=== PATIENT | male | born 1955 | race Caucasian/White ===

== ENCOUNTER → 2016-09-20 | Outpatient (CLI) | payer OTHER ==
[~2016-09-20] MED LIST: ADVIL200 MG PO; ALEVE 220MG220 MG PO; AMBIEN 5MG TABLE5 MG PO; CLEOCIN HC150 MG/CAP PO; DIFLUCAN 100MG100 MG PO; FLAGYL 250250 MG/TAB; FLEXERIL 1010 MG/TAB PO; IBUPROFEN800 MG PO; LEVAQUIN 750MG750 M1 PO; LEXAPRO 5MG5 MG PO; MULTIPLE VITAMI1 CAP; NO HOME MEDICATIONS; NORCO 325 MG-101 TAB PO; NORCO 325 MG-7.1 TAB PO; NORVASC 5MG5 MG/TAB PO; OMNICEF 300MG300 MG PO; PERCOCET 325 MG1 TA2 PO; PREDNISONE 5MG5 MG PO; PREDNISONE20 MG PO; PROTONIX20 MG PO; TYLENOL 325MG325 MG PO; VICODIN 5/5001 UDTAB PO; ZOVIRAX 200MG200 MG PO
== END ==
LOC: COL.RAD 09:13
DX: C90.01 Multiple myeloma in remission (principal); Z98.1 Arthrodesis status

== ENCOUNTER → 2016-10-21 | Outpatient (CLI) | payer OTHER ==
[~2016-10-21] VITALS: Ht 177.8 cm; Wt 81.8 kg
[2016-10-21 07:33] VITALS: BP 144/84; PULSE 57
[2016-10-21 08:30] VITALS: BP 158/89; PULSE 60
== END ==
LOC: COL.RAD 07:00
DX: M54.9 Dorsalgia, unspecified (principal); C90.01 Multiple myeloma in remission
CPT/HCPCS: J3301

== ENCOUNTER 2017-02-26 17:56 | Emergency (ER) | payer OTHER ==
[~2017-02-26] VITALS: Ht 177.8 cm; Wt 84.1 kg
[~2017-02-26 17:56] MED LIST changes: -AMBIEN 5MG TABLE5 MG PO; -LEXAPRO 5MG5 MG PO; -NORVASC 5MG5 MG/TAB PO; -ZOVIRAX 200MG200 MG PO
[2017-02-26 18:02] VITALS: TEMP 98.8
[2017-02-26 18:42] LABS: BASO % 0.1 % (0.0-2.0); EOS # 0.1 (0.0-0.7); EOS % 0.7 % (0-4.0); GRAN # 3.4 (1.4-6.5); GRAN % 48.8 % (42.2-75.2); LYMPH # 2.5 (1.2-3.4); LYMPH % 35.9 % (20.0-51.0); MEAN CELL VOLUME 94 fl (80.0-100.0); MEAN CORPUSCULAR HGB CONC 33 g/dl (33.0-37.0); MEAN PLATELET VOLUME 9.5 fl (7.4-10.4); MONO % 14.1 % (1.7-9.3); PLATELET COUNT 131 K/mm3 (130-400); RED BLOOD COUNT 3.18 M/mm3 (4.20-5.60); REDCELL DISTRIBUTION WIDTH-CV 15.7 % (11.5-14.5); WHITE BLOOD COUNT 6.9 K/mm3 (4.8-10.8)
[2017-02-26] MEDS ORDERED: NORVASC 5MG5 MG/TAB PO ×2 (18:42→21:59)
[2017-02-26 18:46] LABS: HEMOGLOBIN 9.8 g/dl (13.5-18.0); MEAN CORPUSCULAR HEMOGLOBIN 31 pg (27.0-31.0)
[2017-02-26 18:48] LABS: ADJUSTED CALCIUM 8.8 mg/dL (8.4-10.2); ALANINE AMINOTRANSFERASE 36 U/L (21-72); ALBUMIN 3.6 gm/dL (3.5-5.0); ALKALINE PHOSPHATASE 45 U/L (50-136); ANION GAP 7 mmol/L (7-16); BILIRUBIN,TOTAL 0.7 mg/dL (0.0-1.0); BLOOD UREA NITROGEN 25 mg/dL (9-20); CALCIUM 8.5 mg/dL (8.4-10.2); CARBON DIOXIDE 24 mmol/L (22-30); CHLORIDE 106 mmol/L (98-107); CREATININE, serum 1.03 mg/dL (0.66-1.25); GLUCOSE 104 mg/dL (74-106); SODIUM 136 mmol/L (137-145); TOTAL PROTEIN 6.1 gm/dL (6.4-8.2)
[2017-02-26] MEDS ORDERED: AMBIEN 5MG TABLE5 MG PO (18:54)
[2017-02-26] MEDS ORDERED: LEXAPRO 5MG5 MG PO (18:54)
[2017-02-26] MEDS ORDERED: PERCOCET 325 MG1 TA2 PO (18:55)
[2017-02-26] MEDS ORDERED: ZOVIRAX 200MG200 MG PO (18:56)
[2017-02-26 19:03] LABS: TROPONIN-I < 0.012 ng/mL (0.000-0.034)
[2017-02-26 19:52] LABS: PH 5 (5-8); SQUAMOUS EPITHELIAL None Seen /hpf; URINE APPEARANCE Clear; URINE BACTERIA None Seen /hpf; URINE BILIRUBIN Negative (NEGATIVE); URINE BLOOD 1+ (NEGATIVE); URINE GLUCOSE Negative (NEGATIVE); URINE KETONE Negative (NEGATIVE); URINE RBC 0-2 /hpf; URINE UROBILINOGEN Negative (NEGATIVE); URINE WBC 0-2 /hpf
[2017-02-26 19:53] LABS: URINE COLOR Yellow
[2017-02-26 22:18] VITALS: BP 163/88; PULSE 58
== END 2017-02-26 22:31 | disposition home or self-care (01) ==
LOC: COL.ER 17:56
PROVIDERS: Emergency Medicine
DX: I10 Essential (primary) hypertension (principal); R53.81 Other malaise; C92.Z0 Other myeloid leukemia not having achieved remission; M19.90 Unspecified osteoarthritis, unspecified site; F17.210 Nicotine dependence, cigarettes, uncomplicated; Z85.79 Personal history of other malignant neoplasms of lymphoid, hematopoietic and related tissues; Z94.84 Stem cells transplant status; Z98.890 Other specified postprocedural states
CPT/HCPCS: J1885; J1940; J2405; J7030; Q9967

== ENCOUNTER → 2017-03-04 | Outpatient (CLI) | payer OTHER ==
[~2017-03-04] MED LIST changes: +AMBIEN 5MG TABLE5 MG PO; +LEXAPRO 5MG5 MG PO; +NORVASC 5MG5 MG/TAB PO; +ZOVIRAX 200MG200 MG PO
== END ==
LOC: COL.VAS 13:43
DX: I08.1 Rheumatic disorders of both mitral and tricuspid valves (principal); I77.810 Thoracic aortic ectasia; I28.8 Other diseases of pulmonary vessels; I37.1 Nonrheumatic pulmonary valve insufficiency; I10 Essential (primary) hypertension

== ENCOUNTER 2018-06-12 09:29 | Emergency (ER) | payer MEDICARE, OTHER ==
[~2018-06-12] VITALS: Ht 177.8 cm; Wt 79.5 kg
[~2018-06-12 09:29] MED LIST changes: +PROAIR HFA0.09 MG/AC IH
[2018-06-12 09:32] VITALS: TEMP 98
[2018-06-12] MEDS ORDERED: OXYCONTIN 10MG10 MG PO (10:10)
[2018-06-12] MEDS ORDERED: PERCOCET 325 MG1 TA2 PO (10:11)
[2018-06-12] MEDS ORDERED: POMA4CAP PO (10:11)
[2018-06-12 10:15] LABS: HEMOGLOBIN 10.8 g/dl (13.5-18.0); MEAN CELL VOLUME 86 fl (80.0-100.0); MEAN CORPUSCULAR HEMOGLOBIN 28 pg (27.0-31.0); MEAN CORPUSCULAR HGB CONC 33 g/dl (33.0-37.0); MEAN PLATELET VOLUME 9.5 fl (7.4-10.4); PLATELET COUNT 148 K/mm3 (130-400); RED BLOOD COUNT 3.87 M/mm3 (4.20-5.60); REDCELL DISTRIBUTION WIDTH-CV 19.5 % (11.5-14.5)
[2018-06-12 10:19] LABS: HEMATOCRIT 33.1 % (42.0-52.0)
[2018-06-12 10:21] LABS: CALCIUM 9.1 mg/dL (8.4-10.2); CREATININE, serum 0.63 mg/dL (0.66-1.25); POTASSIUM 4.1 mmol/L (3.4-5.0)
[2018-06-12 11:12] LABS: ANISOCYTOSIS 1+; BAND 16 % (0-10); LYMPHOCYTE 44 % (20.0-51.0); METAMYELOCYTE 8 % (0-0); NEUTROPHILS 20 % (42.0-75.2); NUCLEATED RED BLOOD CELL 1 (0-6); PLATELET ESTIMATE DECREASED (NORMAL)
[2018-06-12 11:13] LABS: OVALOCYTES 1+; POIKILOCYTOSIS 1+
[2018-06-12] MEDS ORDERED: LIDODERM 5% PATC1 EA TP (13:22)
[2018-06-12 13:39] VITALS: BP 175/83; PULSE 48
[2018-06-13] MEDS ORDERED: NORVASC 5MG5 MG/TAB PO (14:36)
== END 2018-06-12 13:40 | disposition home or self-care (01) ==
LOC: COL.ER 09:29
PROVIDERS: Emergency Medicine
DX: M54.5 Low back pain (principal); I10 Essential (primary) hypertension; C90.00 Multiple myeloma not having achieved remission; F17.210 Nicotine dependence, cigarettes, uncomplicated; Z79.891 Long term (current) use of opiate analgesic
CPT/HCPCS: A9585; J1885; J2270; J7030

== ENCOUNTER 2018-06-15 13:07 | Inpatient (IN) | payer MEDICARE, OTHER ==
[~2018-06-15] VITALS: Ht 175.3 cm; Wt 83.0 kg
[~2018-06-15 13:07] MED LIST changes: +LIDODERM 5% PATC1 EA TP; +OXYCONTIN 10MG10 MG PO; +POMA4CAP PO
[2018-06-15] MEDS ORDERED: OXYCODONE H5 MG/5 ML PO (13:31)
[2018-06-15] MEDS ORDERED: FENTANYL 25 MCG TD (13:31)
[2018-06-15] MEDS ORDERED: LEVAQUIN 5500 MG/TA1 PO (13:31)
[2018-06-15 15:14] VITALS: BP 112/51; PULSE 58; TEMP 98.7
[2018-06-15 16:01] LABS: INR 1.3 (0.8-3.0); PROTHROMBIN TIME 14.6 SECONDS (9.7-12.8)
[2018-06-15 16:09] LABS: MAGNESIUM 1.9 mg/dL (1.6-2.3)
[2018-06-15 16:45] LABS: C-REACTIVE PROTEIN 31.8 mg/dL (0.0-0.9)
[2018-06-15] MEDS ORDERED: ROXANOL 20MG20 MG/ML PO (17:08)
[2018-06-15 19:23] VITALS: BP 126/60; PULSE 93
[2018-06-16 00:09] VITALS: BP 129/64; PULSE 80; TEMP 100.1
[2018-06-16 04:04] VITALS: BP 118/67; PULSE 69; TEMP 99.8
[2018-06-16 07:26] VITALS: BP 125/55; PULSE 67; TEMP 98.7
[2018-06-16 08:06] LABS: CALCIUM 7.8 mg/dL (8.4-10.2); CREATININE, serum 0.89 mg/dL (0.66-1.25); MAGNESIUM 1.8 mg/dL (1.6-2.3); POTASSIUM 4.2 mmol/L (3.4-5.0)
[2018-06-16 08:12] LABS: MEAN CELL VOLUME 86 fl (80.0-100.0); MEAN CORPUSCULAR HGB CONC 32 g/dl (33.0-37.0); MEAN PLATELET VOLUME 9.2 fl (7.4-10.4); PLATELET COUNT 106 K/mm3 (130-400); RED BLOOD COUNT 2.93 M/mm3 (4.20-5.60); REDCELL DISTRIBUTION WIDTH-CV 19.6 % (11.5-14.5)
[2018-06-16 08:22] LABS: HEMATOCRIT 25.3 % (42.0-52.0); HEMOGLOBIN 8.2 g/dl (13.5-18.0); MEAN CORPUSCULAR HEMOGLOBIN 28 pg (27.0-31.0)
[2018-06-16 08:28] LABS: BAND 28 % (0-10); EOSINOPHIL 2 % (0-4); LYMPHOCYTE 38 % (20.0-51.0); NEUTROPHILS 32 % (42.0-75.2)
[2018-06-16 08:29] LABS: PLATELET ESTIMATE DECREASED (NORMAL)
[2018-06-16 08:30] LABS: OVALOCYTES 2+; SCHISTOCYTES 1+; TEAR DROP CELLS 1+
[2018-06-16 13:39] VITALS: BP 117/63; PULSE 68; TEMP 99
[2018-06-16 15:27] VITALS: BP 133/60; PULSE 71; TEMP 98.8
[2018-06-16 20:00] VITALS: BP 136/59; PULSE 76; TEMP 98.1
[2018-06-17 00:43] VITALS: BP 131/63; PULSE 80; TEMP 98.3
[2018-06-17 04:55] VITALS: BP 124/72; PULSE 63
[2018-06-17 08:05] VITALS: BP 135/71; PULSE 55; TEMP 98.2
[2018-06-17 09:06] LABS: MEAN CELL VOLUME 88 fl (80.0-100.0); MEAN CORPUSCULAR HGB CONC 32 g/dl (33.0-37.0); MEAN PLATELET VOLUME 10.6 fl (7.4-10.4); PLATELET COUNT 132 K/mm3 (130-400); RED BLOOD COUNT 3.16 M/mm3 (4.20-5.60); REDCELL DISTRIBUTION WIDTH-CV 19.9 % (11.5-14.5)
[2018-06-17 09:07] LABS: HEMATOCRIT 27.7 % (42.0-52.0); HEMOGLOBIN 8.9 g/dl (13.5-18.0); MEAN CORPUSCULAR HEMOGLOBIN 28 pg (27.0-31.0)
[2018-06-17 09:20] LABS: CREATININE, serum 0.77 mg/dL (0.66-1.25); POTASSIUM 4.3 mmol/L (3.4-5.0)
[2018-06-17 09:21] LABS: ANISOCYTOSIS 1+; BAND 42 % (0-10); HYPOCHROMIA 1+; LYMPHOCYTE 20 % (20.0-51.0); NEUTROPHILS 32 % (42.0-75.2); PLATELET ESTIMATE DECREASED (NORMAL); POIKILOCYTOSIS 1+
[2018-06-17 09:23] LABS: OVALOCYTES 1+
[2018-06-17 11:07] VITALS: BP 134/63; PULSE 58; TEMP 98.6
[2018-06-17] MEDS ORDERED: LEVAQUIN 750MG750 M1 PO (13:45)
[2018-06-19 13:15] LABS: QUANTIFERON TB GOLD Indeterminate (Negative)
[2018-06-23 15:55] LABS: COCCIDIOIDES AB IGG Negative (Negative); COCCIDIOIDES AB IGM Negative (Negative); COCCIDIOIDES CF Negative (Negative)
== END 2018-06-17 15:58 | disposition home or self-care (01) | DRG 194 ==
LOC: MEDICAL 13:07
PROVIDERS: Internal Medicine; Physician Assistant
PROC: 3E0R33Z Introduction of Anti-inflammatory into Spinal Canal, Percutaneous Approach (ICD-10-PCS; principal; 2018-06-16)
PROC: 3E0R3BZ Introduction of Anesthetic Agent into Spinal Canal, Percutaneous Approach (ICD-10-PCS; 2018-06-16)
DX: J12.1 Respiratory syncytial virus pneumonia (principal); C90.02 Multiple myeloma in relapse; Z94.84 Stem cells transplant status; D70.1 Agranulocytosis secondary to cancer chemotherapy; R50.81 Fever presenting with conditions classified elsewhere; F17.210 Nicotine dependence, cigarettes, uncomplicated; I10 Essential (primary) hypertension; D64.9 Anemia, unspecified
CPT/HCPCS: 99222-AI; 99232-AI; 99239; A4216; J0692; J1447; J1650; J2270; J3301; J7030

== ENCOUNTER 2018-09-08 08:30 | Outpatient (RCR) | payer MEDICARE, OTHER ==
[~2018-09-08 08:30] MED LIST changes: +FENTANYL 25 MCG TD; +LEVAQUIN 5500 MG/TA1 PO; +OXYCODONE H5 MG/5 ML PO; +ROXANOL 20MG20 MG/ML PO
== END 2018-10-11 | disposition home or self-care (01) ==
LOC: WSPT
DX: C90.02 Multiple myeloma in relapse (principal); M48.061 Spinal stenosis, lumbar region without neurogenic claudication; M54.32 Sciatica, left side; M54.31 Sciatica, right side; R29.898 Other symptoms and signs involving the musculoskeletal system; Z92.3 Personal history of irradiation; Z92.21 Personal history of antineoplastic chemotherapy; Z94.84 Stem cells transplant status
CPT/HCPCS: G8978-GP; G8979-GP

== ENCOUNTER → 2018-11-13 | Outpatient (CLI) | payer MEDICARE, OTHER | LOC: COL.RAD 07:56 | DX: K63.89 Other specified diseases of intestine (principal); R39.89 Other symptoms and signs involving the genitourinary system; R31.9 Hematuria, unspecified | CPT/HCPCS: Q9967 ==

== ENCOUNTER → 2019-01-14 | Emergency (ER) | payer MEDICARE, OTHER ==
[~2019-01-14] MED LIST changes: +ASPIRIN E.C. 8181 MG PO; +CIPRO 500MG TA500 MG PO; +CYMBALTA 30MG30 MG PO; +DOXYCYCLINE 10100 MG PO; +FLOMAX 0.40.4 MG/CAP PO; +GLUCOPHAGE500 MG/TAB PO; +IMODIUM 2MG CAPS2 MG PO; +NEURONTIN100 MG/CAP PO; +NORVASC 10MG10 MG PO; +OXY IR5 MG PO; +ZOVIRAX400 MG PO
== END ==
LOC: COL.ER 06:20
DX: Z72.9 Problem related to lifestyle, unspecified (principal)

== ENCOUNTER 2019-03-23 09:30 | Outpatient (RCR) | payer MEDICARE, OTHER | END 2019-03-27 09:22 | disposition home or self-care (01) | LOC: WSPT 09:30 | DX: M48.062 Spinal stenosis, lumbar region with neurogenic claudication (principal); G62.9 Polyneuropathy, unspecified ==

== ENCOUNTER 2019-05-29 10:30 | Outpatient (RCR) | payer MEDICARE, OTHER | END 2019-08-02 11:07 | disposition home or self-care (01) | LOC: WSPT 10:30 | DX: C90.02 Multiple myeloma in relapse (principal); M48.062 Spinal stenosis, lumbar region with neurogenic claudication; R27.0 Ataxia, unspecified; M46.92 Unspecified inflammatory spondylopathy, cervical region; Z43.3 Encounter for attention to colostomy; Z87.891 Personal history of nicotine dependence ==

== ENCOUNTER 2019-08-08 08:40 | Outpatient (RCR) | payer MEDICARE, OTHER ==
[~2019-08-08] VITALS: Ht 175.3 cm; Wt 80.0 kg
[2019-08-08 09:52] VITALS: BP 121/80; PULSE 73; TEMP 98.4
--- NOTE | 2019-08-08 10:00 | NUR ---
Pt placed on heart monitor in room to for infusion due to potential cardiac side effects. Pt in SR, HR 75.
[2019-08-08] MEDS ORDERED: WELLBUTRIN XL150 MG PO (10:09)
[2019-08-08] MEDS ORDERED: VANCOCIN H125 MG/CAP PO (10:09)
[2019-08-08] MEDS ORDERED: [UNRECOGNIZED DRUG - OTHER] IV (10:11)
--- NOTE | 2019-08-08 10:27 | NUR ---
Pt tolerating Zinplava well. Pt in SR, HR 68 per monitor in room.
[2019-08-08 10:28] VITALS: BP 138/75; PULSE 82
[2019-08-08 11:17] VITALS: BP 143/71; PULSE 60; TEMP 98.7
--- NOTE | 2019-08-08 11:18 | NUR ---
Pt in SR 61 per heart monitor in room. Pt alfonso aguilar.
--- NOTE | 2019-08-08 11:35 | NUR ---
Pt alfonso infusion well. Pt discharged per w/c by nurse to truck.
== END 2019-08-08 12:44 | disposition home or self-care (01) ==
LOC: EUO 08:40
DX: C90.02 Multiple myeloma in relapse (principal); A49.8 Other bacterial infections of unspecified site; A04.71 Enterocolitis due to Clostridium difficile, recurrent; D89.9 Disorder involving the immune mechanism, unspecified; F19.90 Other psychoactive substance use, unspecified, uncomplicated; D69.9 Hemorrhagic condition, unspecified
CPT/HCPCS: J0565; J7050

== ENCOUNTER 2019-10-16 14:48 | Outpatient (RCR) | payer MEDICARE, OTHER ==
[~2019-10-16] VITALS: Ht 175.3 cm; Wt 79.0 kg
[~2019-10-16 14:48] MED LIST changes: +VANCOCIN H125 MG/CAP PO; +WELLBUTRIN XL150 MG PO; +[UNRECOGNIZED DRUG - OTHER] IV
[2019-10-19] VITALS (10 sets, daily range): BP systolic 148–178; BP diastolic 59–91; PULSE 43–68; TEMP 97.7–98.9
== END 2019-10-19 18:37 | disposition home or self-care (01) ==
LOC: EUO 14:48
DX: C90.00 Multiple myeloma not having achieved remission (principal); D64.9 Anemia, unspecified
CPT/HCPCS: J7050; P9016

== ENCOUNTER 2019-11-01 10:15 | Outpatient (RCR) | payer MEDICARE, OTHER ==
[2019-11-08] MEDS ORDERED: TYLENOL 325MG325 MG PO (03:30)
[2019-11-08] MEDS ORDERED: DECADRON 4MG TAB4 MG PO (03:31)
[2019-11-08] MEDS ORDERED: CYMBALTA 30MG30 MG PO (03:32)
[2019-11-08] MEDS ORDERED: FLOMAX 0.40.4 MG/CAP PO (03:33)
[2019-11-08] MEDS ORDERED: GLUCOPHAGE500 MG/TAB PO (03:33)
[2019-11-08] MEDS ORDERED: ROXICODONE15 MG PO (03:34)
[2019-11-08] MEDS ORDERED: OMNICEF 300MG300 MG PO (06:28)
[2020-01-14] MEDS ORDERED: NEURONTIN300 MG/CAP PO (09:20)
[2020-01-14] MEDS ORDERED: FENTANYL 50MCG TD (09:22)
== END 2020-01-09 | disposition home or self-care (01) ==
LOC: WSPT
DX: C90.02 Multiple myeloma in relapse (principal); M48.062 Spinal stenosis, lumbar region with neurogenic claudication; M46.92 Unspecified inflammatory spondylopathy, cervical region; R27.0 Ataxia, unspecified

== ENCOUNTER 2019-11-08 03:08 | Emergency (ER) | payer MEDICARE, OTHER ==
[~2019-11-08] VITALS: Ht 172.7 cm; Wt 78.6 kg
[2019-11-08] MEDS ORDERED: TYLENOL 325MG325 MG PO (03:30)
[2019-11-08] MEDS ORDERED: DECADRON 4MG TAB4 MG PO (03:31)
[2019-11-08] MEDS ORDERED: CYMBALTA 30MG30 MG PO (03:32)
[2019-11-08] MEDS ORDERED: GLUCOPHAGE500 MG/TAB PO (03:33)
[2019-11-08] MEDS ORDERED: FLOMAX 0.40.4 MG/CAP PO (03:33)
[2019-11-08] MEDS ORDERED: ROXICODONE15 MG PO (03:34)
[2019-11-08 03:49] LABS: BASO # 0.1 (0.0-0.2); BASO % 1.4 % (0.0-2.0); EOS % 0.2 % (0-4.0); GRAN # 4.2 (1.4-6.5); GRAN % 82.7 % (42.2-75.2); LYMPH # 0.4 (1.2-3.4); LYMPH % 8.5 % (20.0-51.0); MEAN CELL VOLUME 78 fl (80.0-100.0); MEAN CORPUSCULAR HEMOGLOBIN 24 pg (27.0-31.0); MEAN CORPUSCULAR HGB CONC 31 g/dl (33.0-37.0); MEAN PLATELET VOLUME 9.7 fl (7.4-10.4); MONO # 0.3 (0.1-0.6); MONO % 6.2 % (1.7-9.3); PLATELET COUNT 282 K/mm3 (130-400); RED BLOOD COUNT 4.65 M/mm3 (4.20-5.60); REDCELL DISTRIBUTION WIDTH-CV 24.3 % (11.5-14.5)
[2019-11-08 03:58] LABS: ALBUMIN 4.3 gm/dL (3.5-5.0); BILIRUBIN,TOTAL 0.5 mg/dL (0.0-1.0); CALCIUM 9.1 mg/dL (8.4-10.2); HEMATOCRIT 36.1 % (42.0-52.0); POTASSIUM 4.6 mmol/L (3.4-5.0); TOTAL PROTEIN 7.6 gm/dL (6.4-8.2)
[2019-11-08 04:17] LABS: COLLECTION METHOD CLEAN CATCH
[2019-11-08 04:28] LABS: MUCOUS Present /lpf; PH 5 (5-8); SQUAMOUS EPITHELIAL None Seen /hpf; URINE APPEARANCE Cloudy; URINE BACTERIA None Seen /hpf; URINE BILIRUBIN Negative (NEGATIVE); URINE BLOOD 2+ (NEGATIVE); URINE COLOR Yellow; URINE GLUCOSE Negative (NEGATIVE); URINE KETONE Negative (NEGATIVE); URINE LEUKOCYTE ESTERASE 3+ (NEGATIVE); URINE NITRATE Negative (NEGATIVE); URINE PROTEIN(semi-quant) 2+ (NEGATIVE); URINE UROBILINOGEN Negative (NEGATIVE)
[2019-11-08] MEDS ORDERED: OMNICEF 300MG300 MG PO (06:28)
[2019-11-08 07:50] VITALS: BP 123/72; PULSE 85; TEMP 98.7
== END 2019-11-08 07:50 | disposition home or self-care (01) ==
LOC: COL.ER 03:08
PROVIDERS: Emergency Medicine
DX: N39.0 Urinary tract infection, site not specified (principal); C90.00 Multiple myeloma not having achieved remission; F17.210 Nicotine dependence, cigarettes, uncomplicated; Z79.84 Long term (current) use of oral hypoglycemic drugs
CPT/HCPCS: J0696; J2405; J7030

== ENCOUNTER → 2020-01-16 | Outpatient (CLI) | payer MEDICARE, OTHER ==
[~2020-01-16] MED LIST changes: +DECADRON 4MG TAB4 MG PO; +FENTANYL 50MCG TD; +NEURONTIN300 MG/CAP PO; +ROXICODONE15 MG PO
[2020-01-16 09:12] VITALS: BP 143/68; PULSE 50
[2020-01-16 10:45] VITALS: BP 145/71; PULSE 52
--- NOTE | 2020-01-16 11:15 | NUR ---
pts legs are moving but his hips are numb.
--- NOTE | 2020-01-16 11:30 | NUR ---
pt legs remain somewhat unsteady. pt reports his hips are slightly improved. staff helped pt into his pov and his was uncertain about taking pt home. pt was adament about going home. he refused to stay any longer.
== END ==
LOC: COL.RAD 08:45
DX: M48.061 Spinal stenosis, lumbar region without neurogenic claudication (principal)
CPT/HCPCS: J3301

== ENCOUNTER 2020-01-23 13:00 | Outpatient (RCR) | payer MEDICARE, OTHER ==
[2020-01-23] VITALS (9 sets, daily range): BP systolic 144–168; BP diastolic 57–81; PULSE 50–55; TEMP 98–98.2
[2020-01-23] MEDS ORDERED: NEURONTIN100 MG/CAP PO (17:39)
[2020-01-23] MEDS ORDERED: REVLIMID15 MG (17:53)
[2020-01-23] MEDS ORDERED: VELCADE3.5 MG IV (17:54)
[2020-01-23] MEDS ORDERED: ZOMETA4 MG/5 ML IV (17:55)
[2020-01-23] MEDS ORDERED: ASPIRIN E.C. 8181 MG PO (17:55)
== END 2020-01-23 19:15 | disposition home or self-care (01) ==
LOC: EUO 13:00
DX: C90.02 Multiple myeloma in relapse (principal); D50.8 Other iron deficiency anemias
CPT/HCPCS: J7050; P9040

== ENCOUNTER 2020-03-07 19:24 | Emergency (ER) | payer MEDICARE, OTHER ==
[~2020-03-07] VITALS: Ht 175.3 cm; Wt 77.3 kg
[~2020-03-07 19:24] MED LIST changes: +REVLIMID15 MG; +VELCADE3.5 MG IV; +ZOMETA4 MG/5 ML IV
[2020-03-07 19:29] VITALS: TEMP 98.5
[2020-03-07 20:00] LABS: COLLECTION METHOD CLEAN CATCH
[2020-03-07 20:09] LABS: BUDDING YEAST Present /hpf; MUCOUS Present /lpf; PH 5 (5-8); SQUAMOUS EPITHELIAL 0-2 /hpf; URINE APPEARANCE Hazy; URINE BACTERIA Occasional /hpf; URINE BILIRUBIN Negative (NEGATIVE); URINE BLOOD 2+ (NEGATIVE); URINE COLOR Yellow; URINE GLUCOSE Negative (NEGATIVE); URINE KETONE Negative (NEGATIVE); URINE LEUKOCYTE ESTERASE 2+ (NEGATIVE); URINE NITRATE Negative (NEGATIVE); URINE PROTEIN(semi-quant) 1+ (NEGATIVE); URINE UROBILINOGEN Negative (NEGATIVE)
[2020-03-07 20:22] LABS: MEAN CELL VOLUME 89 fl (80.0-100.0); MEAN CORPUSCULAR HGB CONC 31 g/dl (33.0-37.0); MEAN PLATELET VOLUME 10.7 fl (7.4-10.4); PLATELET COUNT 132 K/mm3 (130-400); RED BLOOD COUNT 3.23 M/mm3 (4.20-5.60); REDCELL DISTRIBUTION WIDTH-CV 21.2 % (11.5-14.5)
[2020-03-07 20:23] LABS: HEMATOCRIT 28.7 % (42.0-52.0); HEMOGLOBIN 8.8 g/dl (13.5-18.0); MEAN CORPUSCULAR HEMOGLOBIN 27 pg (27.0-31.0)
[2020-03-07 20:34] LABS: ALBUMIN 3.7 gm/dL (3.5-5.0); BILIRUBIN,TOTAL 1.2 mg/dL (0.0-1.0); C-REACTIVE PROTEIN 6.8 mg/dL (0.0-0.9); CALCIUM 8.8 mg/dL (8.4-10.2); CREATININE, serum 1.04 (0.66-1.25); POTASSIUM 4.2 mmol/L (3.4-5.0); TOTAL PROTEIN 6.7 gm/dL (6.4-8.2)
[2020-03-07 21:09] LABS: BAND 3 % (0-10); EOSINOPHIL 4 % (0-4); LYMPHOCYTE 18 % (20.0-51.0); MYELOCYTE 1 % (0-0); NEUTROPHILS 58 % (42.0-75.2)
[2020-03-07 21:11] LABS: OVALOCYTES 3+; PLATELET ESTIMATE NORMAL (NORMAL)
[2020-03-07 21:12] LABS: ANISOCYTOSIS 2+; HYPOCHROMIA 3+; SCHISTOCYTES 1+; TOXIC GRANULATION PRESENT
[2020-03-07] MEDS ORDERED: CEFTIN500 MG PO (21:50)
[2020-03-07 22:12] VITALS: BP 121/69; PULSE 75
[2020-03-09] MEDS ORDERED: DIFLUCAN200 MG PO (17:45)
[2020-03-10 08:36] LABS: PATHOLOGY DIFF REVIEW OK
== END 2020-03-07 22:10 | disposition home or self-care (01) ==
LOC: COL.ER 19:24
PROVIDERS: Emergency Medicine
DX: N39.0 Urinary tract infection, site not specified (principal); I10 Essential (primary) hypertension; F17.210 Nicotine dependence, cigarettes, uncomplicated; Z90.89 Acquired absence of other organs
CPT/HCPCS: J0696; J2270; J2405; J7030; Q9967

== ENCOUNTER → 2020-07-31 | Outpatient (CLI) | payer MEDICARE, OTHER ==
--- NOTE | 2020-07-28 09:13 | NUR ---
PT STATES NO CT OR MRI IMAGES TAKEN ELSEWHERE
[~2020-07-31] VITALS: Ht 175.3 cm; Wt 87.1 kg
[~2020-07-31] MED LIST changes: +CEFTIN500 MG PO; +DEXAMETH PO; +DIFLUCAN200 MG PO; +MOTRIN 200200 MG/TAB PO
[2020-07-31 09:42] VITALS: BP 161/82; PULSE 56
[2020-07-31 10:35] VITALS: BP 176/85; PULSE 60
--- NOTE | 2020-07-31 11:25 | NUR ---
pt states that his hips down to his knees is numb. pt can not stand
--- NOTE | 2020-07-31 12:54 | NUR ---
pt still not able to stand without nearly falling
--- NOTE | 2020-07-31 13:51 | NUR ---
pt stood with nurse and was able to actually stand for awhile. will wait 30 minutes and recheck
--- NOTE | 2020-07-31 14:40 | NUR ---
pt was escorted out to pov in wheelchair. pt able to stand independently and move. here to berry picker machine operator pt
== END ==
LOC: COL.RAD 09:16
DX: M48.062 Spinal stenosis, lumbar region with neurogenic claudication (principal)
CPT/HCPCS: J3301; Q9965

== ENCOUNTER → 2020-08-25 | Outpatient (CLI) | payer MEDICARE, OTHER | LOC: COL.RAD 06:56 | DX: Z01.812 Encounter for preprocedural laboratory examination (principal); J84.10 Pulmonary fibrosis, unspecified; R91.8 Other nonspecific abnormal finding of lung field; R59.0 Localized enlarged lymph nodes; Z98.1 Arthrodesis status | CPT/HCPCS: Q9967 ==

== ENCOUNTER 2020-09-03 13:00 | Outpatient (RCR) | payer MEDICARE, OTHER ==
[2020-09-03] VITALS (9 sets, daily range): BP systolic 127–165; BP diastolic 58–87; PULSE 49–57; TEMP 98.2–98.8
--- NOTE | 2020-09-03 14:36 | NUR ---
Report from Kolby Whittington.
== END 2020-09-03 17:40 ==
LOC: EUO 13:00
DX: C90.02 Multiple myeloma in relapse (principal)
CPT/HCPCS: J7050; P9040

== ENCOUNTER 2020-09-05 15:46 | Observation (INO) | payer MEDICARE, OTHER ==
[~2020-09-05] VITALS: Ht 177.8 cm; Wt 81.6 kg
[2020-09-05 16:57] LABS: MEAN CELL VOLUME 91 fl (80.0-100.0); MEAN CORPUSCULAR HGB CONC 31 g/dl (33.0-37.0); PLATELET COUNT 72 K/mm3 (130-400); RED BLOOD COUNT 3.03 M/mm3 (4.20-5.60); REDCELL DISTRIBUTION WIDTH-CV 19.3 % (11.5-14.5)
[2020-09-05 17:02] LABS: HEMATOCRIT 27.5 % (42.0-52.0); HEMOGLOBIN 8.6 g/dl (13.5-18.0); MEAN CORPUSCULAR HEMOGLOBIN 28 pg (27.0-31.0)
[2020-09-05 17:11] LABS: ALANINE AMINOTRANSFERASE 69 U/L (4-49); ALBUMIN 3.8 gm/dL (3.5-5.0); ALKALINE PHOSPHATASE 93 U/L (50-136); ANION GAP 7 mmol/L (7-16); AST,SGOT 52 U/L (15-37); BLOOD UREA NITROGEN 24 mg/dL (9-20); CALCIUM 8.9 mg/dL (8.4-10.2); CARBON DIOXIDE 23 mmol/L (22-30); CHLORIDE 109 mmol/L (98-107); CREATININE, serum 0.88 (0.66-1.25); GLUCOSE 141 mg/dL (74-106); POTASSIUM 3.5 mmol/L (3.4-5.0); SODIUM 140 mmol/L (137-145); TOTAL PROTEIN 6.6 gm/dL (6.4-8.2)
[2020-09-05 17:24] LABS: TROPONIN-I < 0.012 ng/mL (0.000-0.035)
[2020-09-05 18:28] LABS: BAND 1 % (0-10); EOSINOPHIL 3 % (0-4); LYMPHOCYTE 22 % (20.0-51.0); NEUTROPHILS 63 % (42.0-75.2)
[2020-09-05 18:30] LABS: ANISOCYTOSIS 2+; HYPOCHROMIA 2+; OVALOCYTES 2+; PLATELET ESTIMATE DECREASED (NORMAL)
[2020-09-05 19:44] VITALS: BP 147/63; PULSE 54; TEMP 98.3
[2020-09-06 04:29] VITALS: BP 107/55; PULSE 50; TEMP 98.7
--- NOTE | 2020-09-06 06:21 | NUR ---
PT RESTED QUIETLY MOST OF THE NIGHT. CALLS FOR ASSIST TO BR. C/O GENERAL DISCOMFORT EARLY THIS AM, REQUEST AND GIVEN TYLENOL 650MG. CONTINUES TO REST WITH CALL LIGHT IN REACH.
[2020-09-06 07:08] LABS: MEAN CELL VOLUME 90 fl (80.0-100.0); MEAN CORPUSCULAR HGB CONC 31 g/dl (33.0-37.0); PLATELET COUNT 76 K/mm3 (130-400); RED BLOOD COUNT 2.92 M/mm3 (4.20-5.60); REDCELL DISTRIBUTION WIDTH-CV 19.3 % (11.5-14.5)
[2020-09-06 07:10] LABS: HEMATOCRIT 26.4 % (42.0-52.0); HEMOGLOBIN 8.3 g/dl (13.5-18.0); MEAN CORPUSCULAR HEMOGLOBIN 28 pg (27.0-31.0)
[2020-09-06 07:30] LABS: ALBUMIN 3.5 gm/dL (3.5-5.0); BILIRUBIN,TOTAL 1.8 mg/dL (0.0-1.0); CALCIUM 8.7 mg/dL (8.4-10.2); CREATININE, serum 0.97 (0.66-1.25); POTASSIUM 3.8 mmol/L (3.4-5.0); TOTAL PROTEIN 6.3 gm/dL (6.4-8.2)
[2020-09-06 07:37] LABS: BASO % 0.4 % (0.0-2.0); EOS # 0.2 (0.0-0.7); EOS % 6.4 % (0-4.0); GRAN # 1.5 (1.4-6.5); GRAN % 62.7 % (42.2-75.2); LYMPH # 0.3 (1.2-3.4); LYMPH % 14.2 % (20.0-51.0); MONO # 0.4 (0.1-0.6)
[2020-09-06 07:40] VITALS: BP 157/70; PULSE 56; TEMP 98.4
--- NOTE | 2020-09-06 11:00 | NUR ---
Patient seen by Tool Grinding Machine Operator. Patient will be discharging later today. Spoke with him about his diet and fluid intake restrictions when he goes home. No complaints of nausea or pain. No other changes at this time. Call light within reach.
[2020-09-06 11:33] VITALS: BP 141/59; PULSE 49; TEMP 98.6
--- NOTE | 2020-09-06 12:14 | NUR ---
Restrictive Preparation Operator offered prayer and support with patient.
[2020-09-06] MEDS ORDERED: LASIX 20MG TABL20 MG PO (12:15)
--- NOTE | 2020-09-06 13:25 | NUR ---
Patient is discharging home. Discharge instructions discussed with patient. No questions verbalized. Discussed watching the labels on his canned goods to make sure he doesn't go over his sodium intake. Explained the fluid restrictions. Explained his prescription is at the pharmacy to pickle maker. No questions verbalized. INT discontinued. Explained he needs to make his follow up appointments. All belongings packed up and sent with patient. Copies of discharge instructions sent with patient. Patient walked out via wheel chair.
== END 2020-09-06 13:25 | disposition home or self-care (01) ==
LOC: COL.ER 15:46 → SURG 18:34
PROVIDERS: Physician Assistant; ADMIT Hospitalist
DX: R06.02 Shortness of breath (principal); F17.210 Nicotine dependence, cigarettes, uncomplicated; E87.2 Acidosis; D64.9 Anemia, unspecified; E11.9 Type 2 diabetes mellitus without complications; G89.29 Other chronic pain; D61.818 Other pancytopenia; I10 Essential (primary) hypertension; I34.0 Nonrheumatic mitral (valve) insufficiency; Z85.79 Personal history of other malignant neoplasms of lymphoid, hematopoietic and related tissues; Z87.11 Personal history of peptic ulcer disease; Z20.822 Contact with and (suspected) exposure to COVID-19; Z79.84 Long term (current) use of oral hypoglycemic drugs
CPT/HCPCS: 99223-AI; G0378; J1940

== ENCOUNTER 2020-09-27 07:41 | Inpatient (IN) | payer MEDICARE, OTHER ==
[~2020-09-27] VITALS: Ht 175.3 cm; Wt 80.2 kg
[2020-09-27] VITALS (734 sets, daily range): BP systolic 105–121; BP diastolic 40–76; PULSE 69–77; TEMP 98–98.5; O2SAT 58–100
[~2020-09-27 07:41] MED LIST changes: -DEXAMETH PO; +LASIX 20MG TABL20 MG PO; -REVLIMID15 MG; +REVLIMID15 MG PO
[2020-09-27 08:21] LABS: MEAN CELL VOLUME 92 fl (80.0-100.0); MEAN CORPUSCULAR HGB CONC 31 g/dl (33.0-37.0); MEAN PLATELET VOLUME 10.2 fl (7.4-10.4); PLATELET COUNT 71 K/mm3 (130-400); RED BLOOD COUNT 2.43 M/mm3 (4.20-5.60); REDCELL DISTRIBUTION WIDTH-CV 19.2 % (11.5-14.5)
[2020-09-27 08:27] LABS: HEMATOCRIT 22.4 % (42.0-52.0); HEMOGLOBIN 6.9 g/dl (13.5-18.0); INR 1.3 (0.8-3.0); MEAN CORPUSCULAR HEMOGLOBIN 28 pg (27.0-31.0); PROTHROMBIN TIME 14.7 SECONDS (9.7-12.8)
[2020-09-27 08:28] LABS: ALBUMIN 3.6 gm/dL (3.5-5.0); BILIRUBIN,TOTAL 1.5 mg/dL (0.0-1.0); C-REACTIVE PROTEIN 6.8 mg/dL (0.0-0.9); CALCIUM 8.6 mg/dL (8.4-10.2); CREATININE, serum 1.33 (0.66-1.25); TOTAL PROTEIN 6.6 gm/dL (6.4-8.2)
[2020-09-27 08:37] LABS: TROPONIN-I 0.026 ng/mL (0.000-0.035)
[2020-09-27 09:08] LABS: ANISOCYTOSIS 2+; BAND 4 % (0-10); EOSINOPHIL 2 % (0-4); LYMPHOCYTE 20 % (20.0-51.0); METAMYELOCYTE 2 % (0-0); MYELOCYTE 1 % (0-0); NEUTROPHILS 61 % (42.0-75.2); NUCLEATED RED BLOOD CELL 1 (0-6); OVALOCYTES 1+; PLATELET ESTIMATE DECREASED (NORMAL); POIKILOCYTOSIS 1+
[2020-09-27 09:09] LABS: SCHISTOCYTES 1+
--- NOTE | 2020-09-27 09:47 | NUR ---
RECEIVED REPORT FROM KRISTYN BOLDEN. AWAITING ARRIVAL OF PT TO ICU 7.
--- NOTE | 2020-09-27 10:00 | NUR ---
PT ARRIVES TO ICU 7 VIA STRETCHER ON 2L VIA NC. PT ASSISTED TO ICU BED AND PLACED ON BEDSIDE CONTINUOUS MONITOR. VSS. CALL LIGHT WITHIN REACH AND EDUCATION GIVEN, VERBALIZED UNDERSTANDING. NOTED PT DOES MOAN AND STATES CHEST HURTS WHEN TAKING A BREATH OR ANY MOVEMENT. SEE MAR. URINAL WITHIN REACH.
--- NOTE | 2020-09-27 10:10 | NUR ---
CLOTHES IN CLOSET AND PHONE GIVEN TO PT.
[2020-09-27] MEDS ORDERED: FLOMAX 0.40.4 MG/CAP PO (11:12)
[2020-09-27] MEDS ORDERED: PROSCAR 5MG5 MG PO (11:14)
[2020-09-27] MEDS ORDERED: VITAMIN D31000 IU PO (11:15)
--- NOTE | 2020-09-27 12:00 | NUR ---
SPOKE TO DR ROBBINS. PHYSICIAN STATES ONLY 1 PRBC AT THIS TIME AND THEN GIVE ANOTHER DOSE OF 10MG LASIV X1 IV AFTER THAT UNIT.
--- NOTE | 2020-09-27 14:26 | NUR ---
ATTEMPED TO NOTIFY INFECTIOUS DISEASE PROVIDER OF CONSULT, NO ANSWER AT THIS TIME.
--- NOTE | 2020-09-27 15:26 | NUR ---
UPDATED AND PT ON POC.
--- NOTE | 2020-09-27 18:36 | NUR ---
PT NOTED OOB TO USE URINAL. EXPLAINED TO PT THAT I AM CONCERNED OF HIM FALLING. PT STATES HE IS FINE AND PROMISES HE WILL CALL IF HE FEELS TOO WEAK OR IS DIZZY. WILL MONITOR PT CLOSELY. PT IS STEADY TO STAND BUT NEEDS ASSISTANCE WITH AMBULATION.
--- NOTE | 2020-09-27 20:45 | NUR ---
Patient alert and oriented resting in bed. Reports 8/10 mid chest pain which is achy in nature with no radiation. Slight increase in pain with cough and inspiration. Reports chest pain has not changed in location or quality since arrival to the hospital but has lessened some in severity. Denies any other complaints at this time. PRN pain medication being administered. Call light left within reach; will continue to monitor.
[2020-09-28] VITALS (446 sets, daily range): BP systolic 111–134; BP diastolic 65–93; PULSE 62–83; TEMP 97.3–98.1; O2SAT 83–100
[2020-09-28 05:59] LABS: MEAN CELL VOLUME 92 fl (80.0-100.0); MEAN CORPUSCULAR HGB CONC 32 g/dl (33.0-37.0); MEAN PLATELET VOLUME 12.7 fl (7.4-10.4); PLATELET COUNT 70 K/mm3 (130-400); RED BLOOD COUNT 2.58 M/mm3 (4.20-5.60); REDCELL DISTRIBUTION WIDTH-CV 19.4 % (11.5-14.5)
[2020-09-28 06:14] LABS: CALCIUM 8.6 mg/dL (8.4-10.2); CREATININE, serum 1.38 (0.66-1.25); MAGNESIUM 2.1 mg/dL (1.6-2.3); POTASSIUM 4.8 mmol/L (3.4-5.0)
[2020-09-28 06:16] LABS: HEMATOCRIT 23.8 % (42.0-52.0); HEMOGLOBIN 7.5 g/dl (13.5-18.0); MEAN CORPUSCULAR HEMOGLOBIN 29 pg (27.0-31.0)
[2020-09-28 06:29] LABS: TROPONIN-I 0.037 ng/mL (0.000-0.035)
--- NOTE | 2020-09-28 06:30 | NUR ---
Reports chest pain is improved; rates is around a 4 or 5. Feels he is better able to take a deeper breath and with less pain.
[2020-09-28 06:40] LABS: ANISOCYTOSIS 2+; BAND 19 % (0-10); LYMPHOCYTE 11 % (20.0-51.0); MICROCYTOSIS 2+; NEUTROPHILS 60 % (42.0-75.2); PLATELET ESTIMATE DECREASED (NORMAL)
[2020-09-28 06:41] LABS: OVALOCYTES 3+
[2020-09-28 06:42] LABS: SCHISTOCYTES 2+
--- NOTE | 2020-09-28 07:20 | NUR ---
RECEIVED REPORT FROM KRISTYN LEMOS. PT RESTING AT THIS TIME ON 2L VIA NC. PT REQUESTS COFFEE, PROVIDED. CALL LIGHT AND URINAL WITHIN REACH.
--- NOTE | 2020-09-28 08:24 | NUR ---
Paged Dr. Jose regarding troponin level this morning. Awaiting a return call.
--- NOTE | 2020-09-28 10:50 | NUR ---
SPOKE TO DR ROBBINS ABOUT COVID TEST RESULTS. PHYSICIAN STATES CAN TAKE PT OFF ISOLATION PRECAUTIONS AT THIS TIME.
--- NOTE | 2020-09-28 12:16 | NUR ---
REPORT GIVEN TO KRISTYN CASTRO ON MEDICAL. PT TO TRANSFER TO [facility]. ALL PERSONAL BELONINGS SENT WITH PT. PT TRANSFERRED UP IN ON RA.
--- NOTE | 2020-09-28 13:00 | NUR ---
Patient to room 317 by wheelchair from the ICU. Patient ambulated with a standby assist to the bed. A&Ox3. Requesting pain medication. IV CDI. Nurse oriented the patient to location, room and call light. Nurse instructed patient to call for assistance with ambulation. Patient verbalized an understanding. Call light within reach. Bed alarm on
--- NOTE | 2020-09-28 13:11 | NUR ---
UPDATED ON POC, TRASNFER TO 317, AND VISITING POLICY. VERBALIZED UNDERSTANDING.
--- NOTE | 2020-09-28 13:44 | NUR ---
SW called spouse Elaine [phone] to complete intake. Spouse provide that patient lives with her in [facility]. Spouse provided that patient utilizes a walker most of the time and occasionally uses a cane. Spouse states that patient is independent with ADL's, PCP is Dr. Woodard, obtains medications from [facility], and is able to afford his medications. Spouse states that she is the DPOA-HC, will look for document and provide when she picks patient up upon discharge. Spouse states that patient does not utilize services and will not need up on DC. SW will continue to follow.
--- NOTE | 2020-09-28 18:05 | NUR ---
Patient spent most of the rest of the shift resting in bed. Alert and easily awakened when dinner came. VSS. IV CDI. Denies pain and discomfort. Patient assisted with 1xassist to the bathroom. Patient repositioned self independently. Call light within reach. Bed alarm on
[2020-09-29] VITALS (22 sets, daily range): BP systolic 110–149; BP diastolic 50–78; PULSE 61–98; TEMP 96.8–98.2
--- NOTE | 2020-09-29 03:45 | NUR ---
Patient resting in bed with 2L O2 NC for sleeping. He did complain of pain and requested Morphine. Stand by assist to the bathroom twice, voided both times no bowel movement. Bed alarm on and call light within reach.
[2020-09-29 06:39] LABS: MEAN CELL VOLUME 93 fl (80.0-100.0); MEAN CORPUSCULAR HGB CONC 31 g/dl (33.0-37.0); PLATELET COUNT 52 K/mm3 (130-400); RED BLOOD COUNT 2.46 M/mm3 (4.20-5.60); REDCELL DISTRIBUTION WIDTH-CV 19.5 % (11.5-14.5)
[2020-09-29 06:55] LABS: ALBUMIN 3.7 gm/dL (3.5-5.0); BILIRUBIN,TOTAL 1.1 mg/dL (0.0-1.0); CALCIUM 8.4 mg/dL (8.4-10.2); CREATININE, serum 1.93 (0.66-1.25); HEMATOCRIT 22.9 % (42.0-52.0); MAGNESIUM 2.3 mg/dL (1.6-2.3); MEAN CORPUSCULAR HEMOGLOBIN 28 pg (27.0-31.0); POTASSIUM 4.6 mmol/L (3.4-5.0)
[2020-09-29 07:36] LABS: BAND 15 % (0-10); LYMPHOCYTE 7 % (20.0-51.0); NEUTROPHILS 71 % (42.0-75.2); OVALOCYTES 1+; PLATELET ESTIMATE DECREASED (NORMAL); SCHISTOCYTES 1+
--- NOTE | 2020-09-29 10:18 | NUR ---
Initial visit; Patient thanked Forestry Biology Specialist for offering encouragement and God's blessings and for keeping him in Forestry Biology Specialist's prayers.
--- NOTE | 2020-09-29 12:15 | NUR ---
Pt arrived back to medical unit room 317 around 1200. Report received from pathology lab technician RN. Pt resting in bed with eyes closed, rouses to name but closes eyes again. Inspiratory wheezing audible with breathing but appears relaxed and unlabored. Vitals WDL. Right femoral site with angio-seal, CDI. RLE neurovascular WDL. Post-op vitals started. Pt's updated via phone call.
--- NOTE | 2020-09-29 12:54 | NUR ---
Patient worked with PT and recommendation is for Home at this time. Patient to transfer to ICU for cardiac cath. SW will continue to follow.
--- NOTE | 2020-09-29 13:35 | NUR ---
1 UNIT IRRADITAED PRBCs STARTED AT THIS TIME. REMAINED WITH PT FOR FIRST 15 MINUTES, TOLERATED WELL.
--- NOTE | 2020-09-29 22:58 | NUR ---
Patient alert and oriented. Patient resting in bed upon enter the room. Patient reports having some pain to his chest and lower back area and requesting Morphine. PRN Morphine given per OCT. Right femoral heart cath access site covered with dry gauze and C/D/I. Skin soft and no hematoma noted. Patient denies numbness and tingling to his right leg. Patient has been ambulating to the bathroom independently. Denies dizziness or N/V. Currently on 2L oxygen via NC. VS stable at this time. Patient reports he is having bloody urine. Noticed scant amount of bleeding from urethra upon urinating. Called hospitalist Rosangela CANDELARIA and reported about bleeding from urethra. Rosangela CANDELARIA assessed patient and ordered CBC lab draw at this time. Will continue to monitor.
[2020-09-29 23:39] LABS: BASO % 0.3 % (0.0-2.0); EOS % 0.3 % (0-4.0); GRAN # 3.2 (1.4-6.5); GRAN % 85.1 % (42.2-75.2); LYMPH # 0.2 (1.2-3.4); LYMPH % 4.2 % (20.0-51.0); MEAN CELL VOLUME 91 fl (80.0-100.0); MEAN CORPUSCULAR HGB CONC 32 g/dl (33.0-37.0); MEAN PLATELET VOLUME 11.9 fl (7.4-10.4); MONO # 0.3 (0.1-0.6); PLATELET COUNT 53 K/mm3 (130-400); REDCELL DISTRIBUTION WIDTH-CV 18.8 % (11.5-14.5)
[2020-09-29 23:40] LABS: HEMATOCRIT 25.4 % (42.0-52.0); HEMOGLOBIN 8.1 g/dl (13.5-18.0); MEAN CORPUSCULAR HEMOGLOBIN 29 pg (27.0-31.0)
[2020-09-29 23:51] LABS: INR 1.4 (0.8-3.0); PROTHROMBIN TIME 15.9 SECONDS (9.7-12.8)
[2020-09-30] VITALS (8 sets, daily range): BP systolic 124–147; BP diastolic 65–76; PULSE 54–75; TEMP 97.5–98.5
[2020-09-30 02:20] LABS: COLLECTION METHOD CLEAN CATCH
[2020-09-30 02:38] LABS: BUDDING YEAST Present /hpf; MUCOUS Present /lpf; PH 5 (5-8); SQUAMOUS EPITHELIAL None Seen /hpf; URINE APPEARANCE Turbid; URINE BACTERIA None Seen /hpf; URINE BILIRUBIN Negative (NEGATIVE); URINE BLOOD 3+ (NEGATIVE); URINE COLOR Yellow; URINE GLUCOSE Negative (NEGATIVE); URINE KETONE Negative (NEGATIVE); URINE LEUKOCYTE ESTERASE 3+ (NEGATIVE); URINE NITRATE Negative (NEGATIVE); URINE PROTEIN(semi-quant) 1+ (NEGATIVE); URINE RBC >50 /hpf; URINE UROBILINOGEN Negative (NEGATIVE)
--- NOTE | 2020-09-30 03:15 | NUR ---
Patient has been very upset about having some bloody urine and requesting to see his cardiology. Explained to Patient that TEAGAN Adames is hospitalist armen and she is the only available hospitalist armen. Patient states he needs a real doctor who can come right now and fix the problem. Explained to the patient that we are collecting UA and also doing CBC to figure out the problem. UA sample collected and sent to lab at midnight. Hgb level was 8.1 at midnight. PRN Oxycodone given per patient request. Will continue to monitor.
[2020-09-30 06:56] LABS: BASO % 0.5 % (0.0-2.0); EOS % 0.5 % (0-4.0); GRAN # 3.1 (1.4-6.5); GRAN % 82.8 % (42.2-75.2); LYMPH # 0.2 (1.2-3.4); LYMPH % 4.9 % (20.0-51.0); MEAN CELL VOLUME 91 fl (80.0-100.0); MEAN CORPUSCULAR HGB CONC 31 g/dl (33.0-37.0); MEAN PLATELET VOLUME 12.1 fl (7.4-10.4); MONO # 0.4 (0.1-0.6); MONO % 10.2 % (1.7-9.3); PLATELET COUNT 62 K/mm3 (130-400); RED BLOOD COUNT 2.67 M/mm3 (4.20-5.60)
[2020-09-30 06:57] LABS: HEMATOCRIT 24.2 % (42.0-52.0); HEMOGLOBIN 7.6 g/dl (13.5-18.0); MEAN CORPUSCULAR HEMOGLOBIN 28 pg (27.0-31.0)
--- NOTE | 2020-09-30 07:05 | NUR ---
Called for [employer] at 06:[address] Pretty not answering phone call, left voice message at this time.
[2020-09-30 07:10] LABS: ALBUMIN 3.6 gm/dL (3.5-5.0); BILIRUBIN,TOTAL 1.5 mg/dL (0.0-1.0); CALCIUM 8.4 mg/dL (8.4-10.2); CHOLESTEROL RISK RATIO 4.3; CREATININE, serum 1.36 (0.66-1.25); TOTAL PROTEIN 6.9 gm/dL (6.4-8.2)
--- NOTE | 2020-09-30 15:30 | NUR ---
Pt assessment completed and charted, medications administered per mar. Pt A&O, mostly cooperative w/ cares, adamant on doing tasks his own ways, not having bed alarm on. Pt states he "hasn't fallen in 3 years and hasn't fallen since he has been here". Educated pt on his weak gait and need for walker and SBA, educated on using call light, pt verbalizes understanding but states he "will not wait if it takes to long for someone to come help". Pt on room air and occasionally 1-2L NC for comfort, pt satting well. Pt has RH and LAC INT IVs that both flush well. Tele NS, HRRR. UL LS cta, bases have fine crackles. pt to have unit of blood transfused when available, pt educated on POC, needs reminding. No further needs at this time.
[2020-10-01] VITALS (9 sets, daily range): BP systolic 122–157; BP diastolic 62–86; PULSE 54–73; TEMP 97.7–98.2
--- NOTE | 2020-10-01 01:06 | NUR ---
Patient sitting up in bed upon shift start. Patient c/o lower back pain and requesting pain meds. PRN Oxycodone given. Patient currently on room air. Breathing even and unlabored while at rest. Patient denies SOB or dyspnea at this time. All scheduled meds given per OCT. Call light within reach. Patient denies further needs at this time.
--- NOTE | 2020-10-01 01:11 | NUR ---
Blood transfusion started at 00:25 am at the rate of 60ml/hr for the first 15min. VS stable. Remained in the bedside for the first 15min. No adverse reaction noted at this time. Will continue to monitor.
--- NOTE | 2020-10-01 02:26 | NUR ---
Blood transfusion infusing well at 100ml/hr. VS stable. No adverse reaction noted so far. Patient tolerating well. Call light within reach. Will continue to monitor.
--- NOTE | 2020-10-01 06:19 | NUR ---
Transfusion completed at 03:50 am. Patient tolerated well. No adverse reaction noted throughout the transfusion and afterwards. VS stable. Call light within reach. Patient denies any needs at this time.
[2020-10-01 07:28] LABS: MEAN CELL VOLUME 91 fl (80.0-100.0); MEAN CORPUSCULAR HGB CONC 31 g/dl (33.0-37.0); MEAN PLATELET VOLUME 11.3 fl (7.4-10.4); PLATELET COUNT 63 K/mm3 (130-400); RED BLOOD COUNT 2.83 M/mm3 (4.20-5.60); REDCELL DISTRIBUTION WIDTH-CV 18.4 % (11.5-14.5)
[2020-10-01 07:46] LABS: CREATININE, serum 1.17 (0.66-1.25); HEMATOCRIT 25.8 % (42.0-52.0); HEMOGLOBIN 8.1 g/dl (13.5-18.0); MEAN CORPUSCULAR HEMOGLOBIN 29 pg (27.0-31.0); POTASSIUM 4.8 mmol/L (3.4-5.0)
[2020-10-01 09:20] LABS: BAND 6 % (0-10); LYMPHOCYTE 6 % (20.0-51.0); METAMYELOCYTE 1 % (0-0); NEUTROPHILS 73 % (42.0-75.2); OVALOCYTES 1+
[2020-10-01 09:25] LABS: ANISOCYTOSIS 2+; BURR CELLS 1+; HYPOCHROMIA 2+; PLATELET ESTIMATE DECREASED (NORMAL); POIKILOCYTOSIS 2+; SCHISTOCYTES 1+
[2020-10-01 09:26] LABS: MICROCYTOSIS 1+
--- NOTE | 2020-10-01 10:58 | NUR ---
Pt assessment completed and charted, medications administered per mar. pt A&O, on room air, breathing is even and unlabored. C/o pain to rt lower back, provided w/ pain medication per mar. Pt has LAC INT IV that flushes well w/o issue. Pt denies chest pain, dizziness, N/V/D, blood in urine. Pulses strong bilaterally, HRRR. Slight exp wheezing noted to LS throughout. Pt has slight cough, non productive. No edema noted. No further needs expressed at this time. pt to discharge this afternoon.
[2020-10-01] MEDS ORDERED: LIPITOR 40MG TA40 MG PO (10:59)
[2020-10-01] MEDS ORDERED: NITRO-DUR0.2 MG/PAT TD (10:59)
[2020-10-01] MEDS ORDERED: RANEXA 500MG T500 MG PO (10:59)
[2020-10-01] MEDS ORDERED: LASIX 40MG TABL40 MG PO (11:00)
[2020-10-01] MEDS ORDERED: DOXYCYCLINE HY100 MG PO (11:01)
--- NOTE | 2020-10-01 11:42 | NUR ---
Photo Engraver is ready for discharge today. SW followed up with patient about OT's recommendation for Home Health. Patient states he has had [facility] in the past but does not want HH services at this time. No other needs at this time and patient states he is ready to get home.
--- NOTE | 2020-10-01 13:52 | NUR ---
Pt discharge instructions discused and reviewed w/ pt and pts , both verbalized understanding, encouraged to call with any questions. LAC INT IV dc'd w/ cath tip intact and no issues. Tele removed and returned to telecommunications analyst. pt escorted out with this nurse by [place], left in private car, all belongings left with pt.
[2020-10-02 08:01] LABS: PATHOLOGY DIFF REVIEW OK
== END 2020-10-01 13:53 | disposition home health service (06) | DRG 280 ==
LOC: COL.ER 07:41 → ICU 08:44 → MEDICAL 09-28 13:43
PROVIDERS: Family Medicine; Physician Assistant; Student in an Organized Health Care Education/Training Program; ADMIT Internal Medicine
PROC: 4A023N7 Measurement of Cardiac Sampling and Pressure, Left Heart, Percutaneous Approach (ICD-10-PCS; principal; 2020-09-27)
PROC: B2111ZZ Fluoroscopy of Multiple Coronary Arteries using Low Osmolar Contrast (ICD-10-PCS; 2020-09-27)
DX: I21.3 ST elevation (STEMI) myocardial infarction of unspecified site (principal); J96.01 Acute respiratory failure with hypoxia; J18.9 Pneumonia, unspecified organism; I50.33 Acute on chronic diastolic (congestive) heart failure; N39.0 Urinary tract infection, site not specified; D61.818 Other pancytopenia; N17.9 Acute kidney failure, unspecified; C90.00 Multiple myeloma not having achieved remission; Z94.84 Stem cells transplant status; Z20.822 Contact with and (suspected) exposure to COVID-19; R31.0 Gross hematuria; G89.29 Other chronic pain; I25.10 Atherosclerotic heart disease of native coronary artery without angina pectoris; F17.210 Nicotine dependence, cigarettes, uncomplicated; D64.9 Anemia, unspecified; E11.9 Type 2 diabetes mellitus without complications; N40.0 Benign prostatic hyperplasia without lower urinary tract symptoms; Z79.84 Long term (current) use of oral hypoglycemic drugs
CPT/HCPCS: 99223-AI; 99233-AI; 99239; J0692; J1644; J1815; J1940; J2250; J2270; J2405; J3010; J3370; J7050; J7512; P9040; Q9967